=== PATIENT | male | born 1980 | race Caucasian/White ===

== ENCOUNTER 2022-08-03 11:29 | Emergency (ER) | payer OTHER, SELFPAY ==
[2022-08-03 11:40] VITALS: BP 153/90; PULSE 51; RESP 16; TEMP 36; O2SAT 98
--- NOTE | 2022-08-03 12:23 | ED.EAR ---
HPI - Ear Problem General Chief complaint: Ear Stated complaint: right ear pain Time Seen by Provider: 08/03/22 12:12 Source: patient Mode of arrival: ambulatory Limitations: no limitations History of Present Illness HPI Narrative: patient presents today complaining of right ear pain x3 days. Hearing is normal. Denies drainage. Currently rates his pain 9/10 and has been taking aspirin with mild relief. He has also been trying Sudafed without relief. He just finished course of Keflex for a paronychia infection 1 week ago. Related Data Home Medications Medication Instructions Recorded Confirmed alprazolam 1 mg tablet mg 08/03/22 atorvastatin 10 mg tablet mg 08/03/22 hydrochlorothiazide 25 mg tablet mg 08/03/22 metoprolol succinate 50 mg mg PO 08/03/22 tablet,extended release 24 hr potassium chloride 10 mEq meq PO 08/03/22 tablet,extended release venlafaxine 150 mg mg PO 08/03/22 capsule,extended release 24 hr Allergies Allergy/AdvReac Type Severity Reaction Status Date / Time No Known Allergies Allergy Verified 08/03/22 11:44 Review of Systems Review of Systems: CONSTITUTIONAL: Denies body aches, fever, chills, or sweats. EYES: Denies visual changes, redness, or discharge. ENT: Denies rhinorrhea, congestion, sore throat. + Right ear pain CARDIOVASCULAR: Denies chest pain, palpitations, or edema. RESPIRATORY: Denies cough or dyspnea. GASTROINTESTINAL: Denies abdominal pain, nausea, vomiting, or diarrhea. GENITOURINARY: Denies dysuria or hematuria. SKIN: Denies rash, itching, or wounds. MUSCULOSKELETAL: Denies back pain, joint pain, or myalgia. NEUROLOGIC: Denies headache, numbness, tingling, or weakness. PSYCH: Denies depression or anxiety. PMFSH Comments At time of signature, I have reviewed and agree with nursing past medical, surgical, social and family history unless otherwise noted. Please see nursing chart for further information. There is no relevant family history pertinent to the presenting complaint Exam Narrative: GENERAL: Well-appearing, well-nourished, and in no acute distress. HEAD: Normocephalic, atraumatic. EYES: EOMI. No redness or drainage. Conjunctivae normal. ENT: Mucous membranes pink and moist. Nares clear. No rhinorrhea. bilateral TMs normal. Right ear canal is swollen and erythematous with movement tenderness. NECK: Normal AROM. CHEST: No respiratory distress. EXTREMITIES: Normal range of motion. No edema. SKIN: Warm, dry, no rash. Capillary refill normal. Normal skin turgor. NEURO: No focal deficits. Alert and oriented x3. Gait steady. PSYCH: Normal affect. No signs of depression or anxiety. Course Course Level of Care: Express Care Visit Vital Signs Vital signs: Vital Signs Temperature 96.8 F L 08/03/22 11:40 Pulse Rate 51 L 08/03/22 11:40 Respiratory Rate 16 08/03/22 11:40 Blood Pressure 153/90 H 08/03/22 11:40 Pulse Oximetry 98 08/03/22 11:40 Oxygen Delivery Room Air 08/03/22 11:40 Temperature 96.8 F L 08/03/22 11:40 Pulse Rate 51 L 08/03/22 11:40 Respiratory Rate 16 08/03/22 11:40 Blood Pressure 153/90 H 08/03/22 11:40 Pulse Oximetry 98 08/03/22 11:40 Oxygen Delivery Room Air 08/03/22 11:40 Reviewed. Pt has been instructed to follow up with his PCP regarding his elevated blood pressure today. Medical Decision Making Differential Diagnosis Differential Diagnosis: Otitis media, otitis externa, ruptured TM, serous otitis, cerumen impaction Vital Signs Vital Signs: Vital Signs Temperature 96.8 F L 08/03/22 11:40 Pulse Rate 51 L 08/03/22 11:40 Respiratory Rate 16 08/03/22 11:40 Blood Pressure 153/90 H 08/03/22 11:40 Pulse Oximetry 98 08/03/22 11:40 Oxygen Delivery Room Air 08/03/22 11:40 Temperature 96.8 F L 08/03/22 11:40 Pulse Rate 51 L 08/03/22 11:40 Respiratory Rate 16 08/03/22 11:40 Blood Pressure 153/90 H 08/03/22 11:40 Pulse Oximetry 98 08/03/22
== END 2022-08-03 12:33 | disposition home or self-care (01) ==
PROVIDERS: Emergency Provider Nurse Practitioner; PCP Family Medicine
DX: H60.501 Unspecified acute noninfective otitis externa, right ear (principal); E78.00 Pure hypercholesterolemia, unspecified; R01.1 Cardiac murmur, unspecified
CPT/HCPCS: 99203; G0463

== ENCOUNTER 2023-01-15 09:10 | Emergency (ER) | payer OTHER, SELFPAY ==
[2023-01-15 09:34] VITALS: BP 124/79; PULSE 72; RESP 16; TEMP 36.5; O2SAT 99
--- NOTE | 2023-01-15 09:37 | ED.WOUNDLAC ---
HPI - Wound/Laceration General Chief Complaint: Skin/Abscess/Foreign Body Stated Complaint: cyst Time Seen by Provider: 01/15/23 09:37 Source: patient Mode of arrival: ambulatory Limitations: no limitations History of Present Illness HPI narrative: 42-year-old male presented for complaint of a 'cyst' to the right lower back/hip area worsening over the past 2 days. Endorses pain is 8/10. Has not taken anything for pain. Admits to drainage through the night from the site. States the site remains red, warm, and tender. Endorses a history of cysts. Smokes half pack per day. Resides in [facility]. Related Data Home Medications Medication Instructions Recorded Confirmed alprazolam 1 mg tablet mg 08/03/22 atorvastatin 10 mg tablet mg 08/03/22 hydrochlorothiazide 25 mg tablet mg 08/03/22 metoprolol succinate 50 mg mg PO 08/03/22 tablet,extended release 24 hr potassium chloride 10 mEq meq PO 08/03/22 tablet,extended release venlafaxine 150 mg mg PO 08/03/22 capsule,extended release 24 hr Allergies Allergy/AdvReac Type Severity Reaction Status Date / Time prednisone Allergy Intermediate Hallucinati Verified 01/15/23 09:39 ng Sulfa (Sulfonamide Allergy Mild Swelling Verified 01/15/23 09:39 Antibiotics) Review of Systems Review of Systems: CONSTITUTIONAL: Denies body aches, fever, chills, or sweats. EYES: Denies visual changes, redness, or discharge. ENT: Denies rhinorrhea, congestion CARDIOVASCULAR: Denies chest pain, palpitations, or edema. RESPIRATORY: Denies cough or dyspnea. GASTROINTESTINAL: Denies abdominal pain, nausea, vomiting, or diarrhea. SKIN: per HPI MUSCULOSKELETAL: Denies back pain, joint pain, or myalgia. NEUROLOGIC: Denies headache, numbness, tingling, or weakness. [facility] Past Medical History Medical History (Updated 01/15/23 @ 10:35 by Paola Cabrera APRN) Hypertension TBI (traumatic brain injury) Comments At time of signature, I have reviewed and agree with nursing past medical, surgical, social and family history unless otherwise noted. Please see nursing chart for further information. There is no relevant family history pertinent to the presenting complaint Exam Narrative: GENERAL: Well-appearing HEAD: Normocephalic, atraumatic. EYES: conjunctivae clear, and EOMI. ENT: Mucous membranes moist. Oropharynx without edema, erythema or lesions. Poor dentition, missing teeth. NECK: Supple. No lymphadenopathy CHEST: Clear to auscultation. HEART: Regular rate and rhythm. SKIN: Warm, dry. Right lower back/hip abscess firm/indurated area of [id number] with surrounding warmth and erythema 11cm diameter; fluctuant and draining center with yellow thick slough tissue. NEURO: Alert and oriented x3. Course Course Emergency Course: Patient is aware of diagnosis, understands and agrees to treatment plan. Anticipatory guidance given. Patient agrees to follow-up as directed and is aware of reasons to seek care at the emergency department. Portions of this record may have been created with voice recognition software Level of Care: Express Care Visit Vital Signs Vital signs: Reviewed Procedures Abscess I/D right lower back: Date of Incision: 01/15/23 Side (if applicable): right Local Anesthetic: lidocaine 1% and with epi Amount of anesthesia used (mL): 3 Technique: incised with #11 blade Irrigation: Yes (100mL) Packing used?: none I&D Results: Pus and Blood Abcess I&D Additional Comments: Verbal consent. Incision made to center of area of fluctuance after local anesthesia achieved. Moderate amount of thick purulent and sanguinous discharge expelled with manual pressure. Small amount of yellow slough at center removed. Wound irrigated and probed for loculations. Pt tolerated the procedure well. Dressing applied per RN. MDM - Wound/Laceration MDM Narrative Medical decision making narrative: Absces
== END 2023-01-15 10:43 | disposition home or self-care (01) ==
PROVIDERS: Emergency Provider Nurse Practitioner Family; PCP Family Medicine
DX: L02.31 Cutaneous abscess of buttock (principal); I10 Essential (primary) hypertension
CPT/HCPCS: 10060; 87070; 87147; 87181; 87186; 87205; 99213; G0463

== ENCOUNTER 2023-04-18 09:26 | Emergency (ER) | payer OTHER, SELFPAY ==
[2023-04-18 09:34] VITALS: BP 131/75; PULSE 55; RESP 16; TEMP 36.9; O2SAT 99
--- NOTE | 2023-04-18 09:36 | ED.EAR ---
HPI - Ear Problem General Chief complaint: Dental/Oral Stated complaint: Right Ear Irritation Time Seen by Provider: 04/18/23 09:35 Source: patient Mode of arrival: ambulatory Limitations: no limitations History of Present Illness HPI Narrative: Silas is a 42-year-old male patient presenting to the clinic today with complaints of right ear pressure, pain, ringing/white noise in right ear. He reports that this has been going on for a few days. No fever or chills. Does report some nasal congestion and allergy symptoms. Related Data Home Medications Medication Instructions Recorded Confirmed alprazolam 1 mg tablet 1 mg DIRECTED 08/03/22 04/18/23 atorvastatin 10 mg tablet 10 mg DIRECTED 08/03/22 04/18/23 hydrochlorothiazide 25 mg tablet 25 mg DIRECTED 08/03/22 04/18/23 metoprolol succinate 50 mg 50 mg PO DIRECTED 08/03/22 04/18/23 tablet,extended release 24 hr potassium chloride 10 mEq 10 meq PO DIRECTED 08/03/22 04/18/23 tablet,extended release venlafaxine 150 mg 150 mg PO DIRECTED 08/03/22 04/18/23 capsule,extended release 24 hr Allergies Allergy/AdvReac Type Severity Reaction Status Date / Time prednisone Allergy Intermediate Hallucinati Verified 04/18/23 09:38 ng Sulfa (Sulfonamide Allergy Mild Swelling Verified 04/18/23 09:38 Antibiotics) Review of Systems Review of Systems: Pertinent positives per HPI. Patient denies any fever, chills, rash, headache, visual changes, dizziness, cough, shortness of breath, chest pain, palpitations, nausea, vomiting, diarrhea, constipation, abdominal pain, or any urinary issues. PMFSH Past Medical History Medical History (Updated 04/18/23 @ 09:38 by Harmeet Lara, JANETTE) Hypertension TBI (traumatic brain injury) Comments At the time of my signature, I reviewed and agree with the nursing past medical, surgical, social, and family history. There is no relevant family history pertinent to the patient complaint. Exam Narrative: General: Well-developed, well nourished, in no apparent distress Head: Normocephalic, atraumatic Eyes: Pupils equally round and reactive to light bilaterally, EOM intact, sclera and conjunctive clear, no discharge, lids normal Ears: Left TMs intact and clear, right TM intact, bulging, opaque, with fluid noted behind the TM, ear canals clear, no drainage, grossly hearing normal. Nose: Nares patent, clear discharge, no inflammation, no sinus tenderness. Mouth: Oral pharynx without lesions or masses, good dentition, MMM. Postnasal drip Neck: Supple, trachea midline, no enlargement of anterior or posterior cervical nodes, no thyroid masses or goiter palpable. Cardio: Regular rate and rhythm, s1 and s2 normal, no murmur appreciated. Resp: Clear to auscultation bilaterally, no rhonchi, rales, wheezing or rubs Course Course Emergency Course: Portions of this record may have been created with voice recognition software. Level of Care: Express Care Visit Vital Signs Vital signs: Vital Signs Temperature 36.9 C 04/18/23 09:34 Pulse Rate 55 L 04/18/23 09:34 Respiratory Rate 16 04/18/23 09:34 Blood Pressure 131/75 04/18/23 09:34 Pulse Oximetry 99 04/18/23 09:34 Oxygen Delivery Room Air 04/18/23 09:34 Temperature 36.9 C 04/18/23 09:34 Pulse Rate 55 L 04/18/23 09:34 Respiratory Rate 16 04/18/23 09:34 Blood Pressure 131/75 04/18/23 09:34 Pulse Oximetry 99 04/18/23 09:34 Oxygen Delivery Room Air 04/18/23 09:34 Vital signs reviewed Medical Decision Making MDM Narrative Medical decision making narrative: At the time of visit patient is resting comfortably on exam table. I suspect the patient has serous otitis. Prescription for prednisone was sent to the pharmacy. Patient has history of lids hallucinating with prednisone but he has had it before and is able to tolerate it. States he saw rainbows in the past and this affect him and not being able to d
== END 2023-04-18 09:43 | disposition home or self-care (01) ==
PROVIDERS: Emergency Provider Nurse Practitioner Family; PCP Family Medicine
DX: H65.111 Acute and subacute allergic otitis media (mucoid) (sanguinous) (serous), right ear (principal); I10 Essential (primary) hypertension
CPT/HCPCS: 99213; G0463

== ENCOUNTER 2024-01-09 17:39 | Emergency (ER) | payer OTHER, SELFPAY ==
[2024-01-09 17:42] VITALS: BP 122/77; PULSE 52; RESP 16; TEMP 36; O2SAT 95
[2024-01-09 18:09] LABS: Basophils Absolute Auto 0.1 K/mm3 (0.0-0.1); Basophils Percent Auto 0.7 % (0.2-1.2); Eosinophils Absolute Auto 0.1 K/mm3 (0-0.3); Eosinophils Percent Auto 0.6 % (0-4.4); Hematocrit 48.2 % (42.0-52.0); Hemoglobin 16.2 g/dL (14.0-18.0); Immature Granulocyte Absolute 0.03 K/mm3 (0.00-0.031); Immature Granulocyte Percent A 0.3 % (0-0.5); Lymphocytes Absolute Auto 2.23 K/mm3 (0.9-3.2); Lymphocytes Percent Auto 20.9 % (18.3-44.2); Mean Corpuscular HGB Conc 33.6 g/dl (32-36); Mean Corpuscular Hemoglobin 28.9 pg (26-34); Mean Corpuscular Volume 85.9 fl (80-100); Mean Platelet Volume 9.3 fl (7.4-10.4); Monocytes Absolute Auto 0.9 K/mm3 (0.1-0.6); Monocytes Percent Auto 8.4 % (2.6-8.5); Neutrophils Absolute Auto 7.4 K/mm3 (1.3-6.7); Neutrophils Percent Auto 69.1 % (45.5-73.1); Platelet Count Result 285 k/mm3 (150-375); Red Blood Count 5.61 M/mm3 (4.6-6.20); Red Cell Distribution Width 13.8 % (11.5-14.5); White Blood Count 10.7 K/mm3 (4.5-10.0)
[2024-01-09 18:17] LABS: Ethanol < 10 mg/dL (<10)
[2024-01-09 18:24] LABS: Alanine Aminotransferase 43 U/L (6-50); Albumin Level 4.8 g/dL (3.5-5.1); Alkaline Phosphatase 111 U/L (38-126); Anion Gap 12 mmol/L (4-12); Aspartate Amino Transferase 35 U/L (17-59); Blood Urea Nitrogen 26 mg/dL (9-20); Calcium 9.6 mg/dL (8.4-10.2); Carbon Dioxide 22 mmol/L (22-30); Chloride 104 mmol/L (98-107); Estimated CRCL calculation 107 ml/min; Estimated Glomerular Filt Rate > 60; Glucose 103 mg/dL (65-110); Potassium 3.6 mmol/L (3.4-5.0); Sodium 138 mmol/L (137-145)
--- NOTE | 2024-01-09 20:07 | PC.NURSE ---
Upon getting patient into a room he states he has no idea why he is here and does not want to be seen anymore. This RN clarified multiple times if pt wants to be seen by a provider for anxiety or anything else and pt denies.
[2024-01-09 20:09] LABS: Thyroid Stimulating Hormone Reflex 0.983 uIU/mL (0.465-4.68)
== END 2024-01-09 20:07 | disposition left against medical advice (07) ==
PROVIDERS: Emergency Provider Emergency Medicine; PCP Family Medicine
DX: F41.9 Anxiety disorder, unspecified (principal)
CPT/HCPCS: 36415; 80053; 80307; 84443; 85025; 99199

== ENCOUNTER 2024-02-21 13:52 | Emergency (ER) | payer OTHER, SELFPAY ==
--- NOTE | 2024-02-21 13:53 | ED.CHESTPAIN ---
HPI - Chest Pain General Chief Complaint: Unspecified Stated Complaint: Chest Wall Pain Time Seen by Provider: 02/21/24 13:52 Source: patient Mode of arrival: ambulatory Limitations: no limitations History of Present Illness HPI narrative: Silas is a 43-year-old male patient presenting to the clinic today with complaints of midsternal chest pain, anxiety, sweating, and shortness of breath. He reports he was taking off his Xanax on Saturday. States he had a positive urine drug test-was positive for methamphetamines and marijuana. He admits to taking the marijuana but denies any methamphetamine use. He lives in the [facility] and thinks that there may be some methamphetamines coming into the air through the [place]. History of TBI , hypertension,and anxiety in the past. Was seeing Dr. Jensen but is now seeing someone else in the office. States that that provider prescribed him 6,[phone] Xanax and the pharmacy contacted the patient and asked him what was going on. The pharmacy did not fill that prescription so the patient has been without this medication. Was given clonidine by Dr. Campa office-states he has taken 1 dose of the clonidine on Saturday and this gave him a headache so he has not taken it since. Related Data Home Medications Medication Instructions Recorded Confirmed atorvastatin 10 mg tablet 10 mg DIRECTED 08/03/22 02/21/24 hydrochlorothiazide 25 mg tablet 12.5 mg PO DIRECTED 08/03/22 02/21/24 clonidine HCl 0.2 mg tablet 0.2 mg PO DIRECTED 02/21/24 02/21/24 metoprolol succinate 25 mg 25 mg PO DAILY 02/21/24 02/21/24 tablet,extended release 24 hr venlafaxine 150 mg 150 mg PO DAILY 02/21/24 02/21/24 capsule,extended release 24 hr Allergies Allergy/AdvReac Type Severity Reaction Status Date / Time prednisone Allergy Intermediate Hallucinati Verified 02/21/24 13:58 ng Sulfa (Sulfonamide Allergy Mild Swelling Verified 02/21/24 13:58 Antibiotics) Review of Systems Review of Systems: Pertinent positives per HPI. Patient denies any fever, chills, rash, headache, visual changes, dizziness, cough, runny nose, sore throat, nausea, vomiting, diarrhea, constipation, abdominal pain, or any urinary issues. PMFSH Past Medical History Medical History Hypertension TBI (traumatic brain injury) Comments At the time of my signature, I reviewed and agree with the nursing past medical, surgical, social, and family history. There is no relevant family history pertinent to the patient complaint. Exam Narrative: General: Well-developed, well nourished, appears anxious, slightly diaphoretic Head: Normocephalic, atraumatic Eyes: Pupils equally round and reactive to light bilaterally, EOM intact, sclera and conjunctive clear, no discharge, lids normal Ears: TMs intact and clear, ear canals clear, no drainage, grossly hearing normal. Nose: Nares patent, no discharge, no inflammation, no sinus tenderness. Mouth: Oropharynx without lesions or masses, good dentition, MMM. Neck: Supple, trachea midline, no enlargement of anterior or posterior cervical nodes, no thyroid masses or goiter palpable. Cardio: Regular rate and rhythm, s1 and s2 normal, no murmur appreciated. Resp: Clear to auscultation bilaterally anteriorly and posteriorly, no rhonchi, rales, wheezing or rubs Extremities: No deformity, no edema, no cyanosis, capillary refill less than 2 seconds, peripheral pulses palpable and strong. Integumentary: [place], warm, and dry, intact without lesion, no rashes. Course Course Emergency Course: Portions of this record may have been created with voice recognition software. Level of Care: Express Care Visit Vital Signs Vital signs: Vital signs reviewed MDM - Chest Pain MDM Narrative Medical decision making narrative: At the time of visit patient is resting comfortably on the exam table. Patient appears to be nontoxic.
[2024-02-21 14:01] VITALS: BP 151/103; PULSE 60; RESP 22; TEMP 36.1; O2SAT 96
--- NOTE | 2024-02-21 14:28 | ECG_ITS ---
[facility] [address] Test Date: 2024-02-21 Pat Name: Silas Umaña Department: Room: Gender: M [employer]: : 1980 Requested By: Harmeet Lara Order Number: [id number] Reading MD: Silas Balderrama M.D. Measurements Intervals [place] Rate: P: MT: QRS: QRSD: T: QT: QTc: Interpretive Statements POOR QUALITY ECG COPY NEARLY UNINTERPRETABLE SINUS BRADYCARDIA BORDERLINE ECG Electronically Signed On 03-06-2024 08:48:39 CDT by Silas Balderrama M.D.
== END 2024-02-21 14:30 | disposition home or self-care (01) ==
PROVIDERS: Emergency Provider Nurse Practitioner Family; PCP Family Medicine
DX: F41.9 Anxiety disorder, unspecified (principal); R07.89 Other chest pain; F13.930 Sedative, hypnotic or anxiolytic use, unspecified with withdrawal, uncomplicated; I10 Essential (primary) hypertension; Z87.820 Personal history of traumatic brain injury
CPT/HCPCS: 93005; 99213; G0463

== ENCOUNTER 2024-03-11 10:10 | Emergency (ER) | payer OTHER, SELFPAY ==
[2024-03-11 10:12] VITALS: BP 154/83; PULSE 56; RESP 18; TEMP 36.2; O2SAT 100
--- NOTE | 2024-03-11 10:14 | ED.GENADULT ---
HPI - General Adult General Chief complaint: Unspecified Stated complaint: body aches x 3-4 weeks Time Seen by Provider: 03/11/24 10:10 Source: patient Mode of arrival: ambulatory Limitations: no limitations History of Present Illness HPI narrative: This is a 43-year-old male who presents to the ED for chief complaint of body aches for the past 3-4 weeks. Patient states that he was taken off of his Xanax cold turkey by a new primary care doctor after his old PCP retired. States he has not had any Xanax in several weeks. Reports that since then he has intermittent body aches. He has had symptoms of anxiety, chest pain and shortness of breath in the past but none today. Denies any other substance use. Denies recent illness, fevers, chills, cough, abdominal pain, nausea, vomiting. States he is currently trying to get in with a new PCP to address his anxiety and prescriptions. Related Data Home Medications Medication Instructions Recorded Confirmed atorvastatin 10 mg tablet 10 mg DIRECTED 08/03/22 02/21/24 hydrochlorothiazide 25 mg tablet 12.5 mg PO DIRECTED 08/03/22 02/21/24 clonidine HCl 0.2 mg tablet 0.2 mg PO DIRECTED 02/21/24 02/21/24 metoprolol succinate 25 mg 25 mg PO DAILY 02/21/24 02/21/24 tablet,extended release 24 hr venlafaxine 150 mg 150 mg PO DAILY 02/21/24 02/21/24 capsule,extended release 24 hr Allergies Allergy/AdvReac Type Severity Reaction Status Date / Time prednisone Allergy Intermediate Hallucinati Verified 02/21/24 13:58 ng Sulfa (Sulfonamide Allergy Mild Swelling Verified 02/21/24 13:58 Antibiotics) Review of Systems Review of Systems: All systems as dictated in [facility] Past Medical History Medical History Hypertension TBI (traumatic brain injury) Exam Narrative: GENERAL: Well-appearing, well-nourished, and in no acute distress. No diaphoresis HEAD: Normocephalic, atraumatic. EYES: PERRLA and EOMI. ENT: Nares clear, no rhinorrhea or epistaxis. Mucous membranes moist. Oropharynx without tonsillar hypertrophy exudate or other lesions. NECK: Supple. No adenopathy or masses. CHEST: No respiratory distress. Clear to auscultation. No wheezes rales or rhonchi HEART: Regular rate and rhythm. No murmur heard. Normal peripheral pulses. ABDOMEN: Soft, nontender, nondistended, normal active bowel sounds. MSK: Normal range of motion. No edema. SKIN: Warm, dry, no rash. NEURO: Alert and oriented x4. No focal deficits. PSYCH: Normal mood and affect. no SI. No HI. No hallucinations Medical Decision Making MDM Narrative Medical decision making narrative: This is a 43 year old male who presents to the ED for chief complaint of body aches for the past 3-4 weeks. vitals show slight elevated blood pressure otherwise normal. Exam is benign. Suspect benzodiazepine withdrawal as patient was taken off of his Xanax a month ago cold turkey after switching PCP. Prescription monitoring program supports this as patient's last prescription was in December. He probably ran out in January. No signs of severe withdrawal such as delirium or seizures. Discussed tapering down of Xanax with the patient. He is understanding of this process. He would like to get off Xanax if possible. He would like to talk to his new PCP about options for controlling anxiety. We agreed on a week's worth his half of his typical dose. Today he was prescribed 0.5 mg alprazolam t.i.d. as needed for anxiety and withdrawal symptoms. Ideally he can talk to his doctor about continuing this taper off. Pt will be discharged in stable condition. Return precautions given and supportive measures discussed. Pt is understanding and agreeable with plan for discharge and follow-up with PCP. Discharge Plan Discharge Clinical Impression: Benzodiazepine withdrawal without complication Patient Disposition: Home, Self-Care
== END 2024-03-11 11:01 | disposition home or self-care (01) ==
LOC: ANHED 10:44
PROVIDERS: Emergency Provider Physician Assistant
DX: F13.930 Sedative, hypnotic or anxiolytic use, unspecified with withdrawal, uncomplicated (principal); F41.9 Anxiety disorder, unspecified; I10 Essential (primary) hypertension; Z87.820 Personal history of traumatic brain injury; Z79.899 Other long term (current) drug therapy
CPT/HCPCS: 99283

== ENCOUNTER 2024-08-24 09:31 | Emergency (ER) | payer OTHER, SELFPAY ==
[2024-08-24 09:41] VITALS: BP 125/92; PULSE 69; RESP 16; TEMP 35.2; O2SAT 100
--- NOTE | 2024-08-24 10:09 | ED_ITS ---
HPI - Wound/Laceration General Chief Complaint: Wound/Laceration Stated Complaint: pilonidal cyst discharge Time Seen by Provider: 08/24/24 10:09 Source: patient, RN notes reviewed and old records reviewed Mode of arrival: ambulatory Limitations: no limitations History of Present Illness HPI narrative: 43-year-old male presents to the [facility] with increased bloody drainage, bloody clots coming from a surgical incision. Patient reports a pilonidal cyst removal 1 week ago. Currently on Cipro and Flagyl. Patient reports that he woke up approximately 4:00 a.m. and was covered in blood. Patient reports surgery was done at [facility]. Related Data Home Medications Medication Instructions Recorded Confirmed atorvastatin 10 mg tablet 10 mg DIRECTED 08/03/22 02/21/24 hydrochlorothiazide 25 mg tablet 12.5 mg PO DIRECTED 08/03/22 02/21/24 clonidine HCl 0.2 mg tablet 0.2 mg PO DIRECTED 02/21/24 02/21/24 metoprolol succinate 25 mg 25 mg PO DAILY 02/21/24 02/21/24 tablet,extended release 24 hr venlafaxine 150 mg 150 mg PO DAILY 02/21/24 02/21/24 capsule,extended release 24 hr aripiprazole 5 mg tablet mg 08/24/24 ciprofloxacin HCl 500 mg tablet mg 08/24/24 gabapentin 100 mg capsule mg 08/24/24 guanfacine 2 mg tablet,extended mg PO 08/24/24 release 24 hr hydroxyzine HCl 50 mg tablet mg 08/24/24 metronidazole 500 mg tablet mg 08/24/24 prazosin 1 mg capsule mg 08/24/24 propranolol 60 mg capsule,24 mg PO 08/24/24 hr,extended release Allergies Allergy/AdvReac Type Severity Reaction Status Date / Time prednisone Allergy Intermediate Hallucinati Verified 08/24/24 09:49 ng Sulfa (Sulfonamide Allergy Mild Swelling Verified 08/24/24 09:49 Antibiotics) Review of Systems Review of Systems: All systems reviewed & are unremarkable except as noted in HPI and below Constitutional: Constitutional: Reports no additional constitutional complaints Cardiovascular: Cardiovascular: Reports no additional cardiovascular complaints, Denies chest pain and Denies dyspnea Respiratory: Respiratory: Reports no additional respiratory complaints, Denies chest congestion, Denies cough and Denies dyspnea Gastrointestinal: Gastrointestinal: Reports no additional gastrointestinal complaints, Denies abdominal pain, Denies nausea and Denies vomiting Musculoskeletal: Musculoskeletal: Reports no additional musculoskeletal complaints Integumentary/Breasts: Skin/Breast: Reports as per HPI and Reports wounds (Sacrum, butt cheek) [facility] Past Medical History Medical History (Updated 08/24/24 @ 18:03 by Katharine March APRN) Hypertension TBI (traumatic brain injury) Surgical History Surgical History (Updated 08/24/24 @ 11:54 by Katharine March APRN) History of surgical removal of pilonidal cyst 07/2024 Comments At the time of my signature, I reviewed and agree with the nursing past medical, surgical, social, and family history. There is no relevant family history pertinent to the patient complaint. Exam Const: General: cooperative, healthy appearing, comfortable, no acute distress, well developed, alert and well nourished Nutritional Appearance: well nourished Orientation/consciousness: patient oriented x3 Limitations: no limitations HENMT: Head: normal to inspection Ears: hearing grossly normal bilaterally and external ears normal Face/Nose/Sinus: Normal external nose present, normal facial exam and face symmetric Face and sinus: normal facial exam and face symmetric Eyes: General: appearance normal, both eyes and all related structures Alignment and Position: alignment normal Periorbital: periorbital findings normal Neck: Neck: normal visual inspection, full ROM, no lymphadenopathy and no meningeal signs Chest: Chest palpation & inspection: normal inspection of the chest Resp: Effort & Inspection: normal respiratory effort and able to speak in complete sentences Cardio: Rate: regular rate Skin: General skin exam: normal color and no rashes or lesions noted Lesions: no lesions Rashes: no rashes Other: Surgical wound 17 cm from coccyx almost to anus. Center is open, large blood clots seen. Neuro: General: patient oriented x3, gait normal, tone normal, moves all extremities and no meningeal signs Cognition (Neuro): normal cognition Speech: normal speech Gait exam (Neuro): Normal gait present Extrem: General: normal to inspection, full ROM, capillary refill normal and normal gait Psych: Appearance: grossly normal and well kempt Mental Status: mental status grossly normal Speech and movement: Normal speech and movement present and Clear speech present Affect: normal affect Attitude: cooperative Course Course Emergency Course: Originally called [facility] per patient request, spoke with nurse, Dr. Mami johnson [facility] arrived stating that the only have 1 truck in the area. They are unable to go to own at this time. Patient would prefer to go to [facility]. Spoke with Gilma PATIÑO, Dr. Barton Level of Care: Express Care Visit Vital Signs Vital signs: Vital Signs Temperature 95.3 F L 08/24/24 09:41 Pulse Rate 69 08/24/24 09:41 Respiratory Rate 16 08/24/24 09:41 Blood Pressure 125/92 H 08/24/24 09:41 Pulse Oximetry 100 08/24/24 09:41 Oxygen Delivery Room Air 08/24/24 09:41 Temperature 95.3 F L 08/24/24 09:41 Pulse Rate 69 08/24/24 09:41 Respiratory Rate 16 08/24/24 09:41 Blood Pressure 125/92 H 08/24/24 09:41 Pulse Oximetry 100 08/24/24 09:41 Oxygen Delivery Room Air 08/24/24 09:41 Reviewed Transfer Transfered to: [facility] Transportation: BLS Transfer rationale: Patient with open wound, sending for higher level of care due to unable to evaluate large surgical wound MDM - Wound/Laceration MDM Narrative Medical decision making narrative: Patient with bleeding surgical wound. Surgery 1 week ago. Patient is sitting in exam room. Nontoxic vitals are stable. Originally was going to sent to [facility], EMS unable to do that transfer. Patient has no ride and requesting EMS transfer. Patient now going to [facility] Transfer instructions reviewed with patient go directly to the ER. Patient is choosing to go by EMS due to not having a ride. Unable to do evaluation of the open wound, surgical wound. All questions have been answered, and the patient deny any further questions. Some parts of this dictation were generated by voice recognition software and may contain typographical and/or grammatical inaccuracies. Differential Diagnosis Differential diagnosis: Likely laceration, abscess, abrasion and avulsion of skin Critical Care Time Critical Care Time Critical Care Time: No Discharge Plan Discharge Clinical Impression: Drainage from surgical wound Patient Disposition: Acute Care Hospital Condition: Stable Prescriptions: No Action atorvastatin 10 mg tablet 10 mg DIRECTED hydrochlorothiazide 25 mg tablet 12.5 mg PO DIRECTED metoprolol succinate 25 mg tablet extended release 24 hr 25 mg PO DAILY clonidine HCl 0.2 mg tablet 0.2 mg PO DIRECTED venlafaxine 150 mg capsule,extended release 24hr 150 mg PO DAILY buspirone 7.5 mg tablet 7.5 mg PO BID 30 Days Qty: 60 0RF prazosin 1 mg capsule propranolol 60 mg capsule,extended release 24 hr PO metronidazole 500 mg tablet hydroxyzine HCl 50 mg tablet ciprofloxacin HCl 500 mg tablet gabapentin 100 mg capsule aripiprazole 5 mg tablet guanfacine 2 mg tablet extended release 24 hr PO alprazolam 0.5 mg tablet 0.5 mg PO TID PRN (Reason: anxiety) Qty: 20 0RF Follow-up/Referrals: PHYSICIAN NOT ON STAFF,NONSTAFF [Primary Care Provider] -
== END 2024-08-24 10:35 | disposition short-term general hospital (02) ==
PROVIDERS: Emergency Provider Nurse Practitioner
DX: Z48.01 Encounter for change or removal of surgical wound dressing (principal); I10 Essential (primary) hypertension
CPT/HCPCS: 99215; G0463

== ENCOUNTER 2024-10-20 23:36 | Emergency (ER) | payer OTHER, SELFPAY ==
--- NOTE | ~2024-10-20 | XR_ITS ---
CHEST RADIOGRAPH CLINICAL HISTORY: CP/light headed . COMPARISON: None available TECHNIQUE: Single portable view of the chest. FINDINGS The cardiomediastinal silhouette is unremarkable. The lungs are clear. Visualized osseous structures and soft tissues are unremarkable. IMPRESSION: No focal infiltrate or effusion. Reviewed, dictated and finalized at location A. ER ENGINEER
[2024-10-20 23:35] VITALS: BP 162/98; PULSE 47; RESP 18; TEMP 36.6; O2SAT 98
[2024-10-21 00:03] LABS: Prothrombin Time 13.8 Seconds (11.1-14.7)
[2024-10-21 00:04] LABS: Partial Thromboplastin Time 30.5 Seconds (22.3-36.8)
[2024-10-21 00:05] LABS: Basophils Absolute Auto 0.1 K/mm3 (0.0-0.1); Basophils Percent Auto 0.6 % (0.2-1.2); Eosinophils Absolute Auto 0.1 K/mm3 (0-0.3); Eosinophils Percent Auto 0.9 % (0-4.4); Hematocrit 48.1 % (42.0-52.0); Hemoglobin 15.7 g/dL (14.0-18.0); Immature Granulocyte Absolute 0.09 K/mm3 (0.00-0.031); Immature Granulocyte Percent A 1.2 % (0-0.5); Lymphocytes Absolute Auto 2.63 K/mm3 (0.9-3.2); Lymphocytes Percent Auto 34.1 % (18.3-44.2); Mean Corpuscular HGB Conc 32.6 g/dl (32-36); Mean Corpuscular Hemoglobin 27.6 pg (26-34); Mean Corpuscular Volume 84.7 fl (80-100); Mean Platelet Volume 9.5 fl (7.4-10.4); Monocytes Absolute Auto 0.6 K/mm3 (0.1-0.6); Monocytes Percent Auto 7.1 % (2.6-8.5); Neutrophils Absolute Auto 4.3 K/mm3 (1.3-6.7); Neutrophils Percent Auto 56.1 % (45.5-73.1); Platelet Count Result 300 k/mm3 (150-375); Red Blood Count 5.68 M/mm3 (4.6-6.20); Red Cell Distribution Width 12.8 % (11.5-14.5); White Blood Count 7.7 K/mm3 (4.5-10.0)
[2024-10-21 00:10] LABS: Alanine Aminotransferase 40 U/L (6-50); Albumin Level 4.6 g/dL (3.5-5.1); Alkaline Phosphatase 91 U/L (38-126); Anion Gap 11 mmol/L (4-12); Aspartate Amino Transferase 34 U/L (17-59); Bilirubin,Total 0.8 mg/dL (0.2-1.3); Blood Urea Nitrogen 16 mg/dL (9-20); Carbon Dioxide 28 mmol/L (22-30); Chloride 103 mmol/L (98-107); Estimated CRCL calculation 128 ml/min; Estimated Glomerular Filt Rate > 60; Glucose 114 mg/dL (65-110); Lipase 59 U/L (23-300); Magnesium 1.9 mg/dL (1.6-2.3); Sodium 142 mmol/L (137-145)
[2024-10-21 00:22] LABS: Troponin I < 0.012 ng/mL (0.000-0.034)
--- NOTE | 2024-10-21 00:37 | ED.ARRPALP ---
HPI - Arrhythmia/Palpitations General Chief Complaint: Arrhythmia/Palpitations Stated Complaint: ASYMPTOMATIC BRADYCARDIA Time Seen by Provider: 10/20/24 23:40 History of Present Illness HPI narrative: Patient is a 43-year-old male who presents to the emergency department this evening complaining of a low heart rate. Patient states that he used to be on metoprolol for anxiety and high blood pressure and 3 months ago he was switched to propanolol and ever since they make that switch patient has noticed that his heart rate has always been low ranging in the 40 so 50s. Patient states that he has not had any issues with his low heart rate but recently he has been feeling under the weather and was wondering if that has something to do with that. Patient told his mom that his heart rate has been running and she as a retired nurse prompted him to come to the emergency department for further evaluation. Patient states that his symptoms consisted of some dizziness and some lightheadedness but currently is denying both. He also is denying any active chest pain, shortness of breath, nausea vomiting and abdominal pain. No additional symptoms or concerns at this time. Related Data Home Medications ?Medication ?Instructions ?Recorded ?Confirmed ?Last Taken ?Type atorvastatin 10 mg tablet 10 mg DIRECTED 08/03/22 02/21/24 Unknown History hydrochlorothiazide 25 mg tablet 12.5 mg PO DIRECTED 08/03/22 02/21/24 Unknown History clonidine HCl 0.2 mg tablet 0.2 mg PO DIRECTED 02/21/24 02/21/24 Unknown History metoprolol succinate 25 mg 25 mg PO DAILY 02/21/24 02/21/24 Unknown History tablet,extended release 24 hr venlafaxine 150 mg 150 mg PO DAILY 02/21/24 02/21/24 Unknown History capsule,extended release 24 hr aripiprazole 5 mg tablet mg 08/24/24 Unknown History ciprofloxacin HCl 500 mg tablet mg 08/24/24 Unknown History gabapentin 100 mg capsule mg 08/24/24 Unknown History guanfacine 2 mg tablet,extended mg PO 08/24/24 Unknown History release 24 hr hydroxyzine HCl 50 mg tablet mg 08/24/24 Unknown History metronidazole 500 mg tablet mg 08/24/24 Unknown History prazosin 1 mg capsule mg 08/24/24 Unknown History propranolol 60 mg capsule,24 mg PO 08/24/24 Unknown History hr,extended release Allergies Allergy/AdvReac Type Severity Reaction Status Date / Time prednisone Allergy Intermediate Hallucinati Verified 08/24/24 09:49 ng Sulfa (Sulfonamide Allergy Mild Swelling Verified 08/24/24 09:49 Antibiotics) Review of Systems Review of Systems: All systems are reviewed and are negative unless stated otherwise in the HPI. [facility] Past Medical History Medical History TBI (traumatic brain injury) Hypertension Surgical History Surgical History History of surgical removal of pilonidal cyst 07/2024 Exam Narrative: General: Alert, awake, afebrile, in no acute distress. HEENT: PERRL, no rhinorrhea, no post nasal drip, oropharynx clear. Neck: Trachea midline, no JVD, no lymphadenopathy. Cardiovascular: Bradycardic with regular rhythm, no murmurs, rubs or gallops, no peripheral edema. Respiratory: Clear to auscultation bilaterally, no tachypnea, no wheezing, no rhonchi, no rubs, no respiratory distress. Abdomen: Soft, nontender, nondistended, no rebound, no guarding, no peritoneal signs. Musculoskeletal: No joint swelling or deformity, normal muscle tone. Skin: No rashes or petechia, no signs of infection. Psychiatric: Alert and oriented, normal behavior and judgment for situation. Neurological: Alert and oriented to person, place, and time. Follows all commands. No focal deficits, speech is clear and fluent. Course Vital Signs Vital signs: Vital Signs Temperature 97.8 F 10/20/24 23:35 Pulse Rate 47 L 10/20/24 23:35 Respiratory Rate 18 10/20/24 23:35 Blood Pressure 162/98 H 10/20/24 23:35 Pulse Oximetry 98 10/20/24 23:35 Oxygen Delivery Room Air 10/20/24 23:35 Temperature 97.8 F 10/20/24 23:35 Pulse Rate 47 L 10/20/24 23:35 Respiratory Rate 18 10/20/24 23:35 Blood Pressure 162/98 H 10/20/24 23:35 Pulse Oximetry 98 10/20/24 23:35 Oxygen Delivery Room Air 10/20/24 23:35 MDM - Arrhythmia/Palpitations MDM Narrative Medical decision making narrative: The patient was evaluated by myself in the emergency department. History is obtained from patient who is an independent historian and physical exam was performed. External medical records were reviewed at this time. IV was established and pertinent tests were ordered. EKG was obtained which revealed sinus bradycardia at a rate of 43 beats per minute. No ST changes, T wave inversions or evidence of acute ischemia. EKG was independently interpreted by me and is currently pending official cardiology read. Laboratory results obtained revealing no acute process. Troponin negative. Imaging studies obtained included CXR which was independently interpreted by me revealing no acute cardiopulmonary process, which is pending final radiology interpretation. Differential diagnosis considerations include bradycardia secondary to medication use, ischemia, electrolytes. Comorbidities impacting this visit include daily per final use. I have evaluated and discussed social determinants of health with the patient that could potentially impact subsequent diagnosis and treatment plans. On repeat assessment of the patient, reevaluation revealed that the patient is doing well and is in no acute distress. Patient symptoms have remained stable since he arrived to our emergency department. Repeat vital signs were all reviewed and noted to be stable. Differential diagnosis and treatment plan were discussed with the patient at bedside. Patient agrees with discussion and after shared medical decision making agrees with discharge. All questions were answered to the patient's satisfaction. Patient does not want to completely quit taking the propranolol and would like to be prescribed a lower dose. Patient was informed that he is on the lowest dose of extended release, however, I will be prescribing him for final immediate release 20 mg to take BID which drops the daily dose from 60-40 until he follows up with his primary care physician which he is scheduled to see on Saturday in 2 days. Patient states that he is taking another blood pressure medication hydrochlorothiazide as well. Patient will follow up with his primary care physician in 2 days. Patient was provided with strict return precautions and instructed to return to the emergency department if any new or worsening symptoms develop. The patient was discharged in stable condition. Lab Data 10/20/24 23:42 10/20/24 23:42 Labs: Lab Results 10/20/24 Range/Units 23:42 WBC 7.7 (4.5-10.0) K/mm3 RBC 5.68 (4.6-6.20) M/mm3 Hgb 15.7 (14.0-18.0) g/dL Hct 48.1 (42.0-52.0) % MCV 84.7 (80-100) fl MCH 27.6 (26-34) pg MCHC 32.6 (32-36) g/dl RDW 12.8 (11.5-14.5) % Plt Count 300 (150-375) k/mm3 MPV 9.5 (7.4-10.4) fl Immature Gran % (Auto) 1.2 H (0-0.5) % Neut % (Auto) 56.1 (45.5-73.1) % Lymph % (Auto) 34.1 (18.3-44.2) % [place] % (Auto) 7.1 (2.6-8.5) % Eos % (Auto) 0.9 (0-4.4) % Baso % (Auto) 0.6 (0.2-1.2) % Lymph # (Auto) 2.63 (0.9-3.2) K/mm3 [place] # (Auto) 0.6 (0.1-0.6) K/mm3 Eos # (Auto) 0.1 (0-0.3) K/mm3 Baso # (Auto) 0.1 (0.0-0.1) K/mm3 Abs Immat Gran (auto) 0.09 H (0.00-0.031) K/mm3 Absolute Neuts (auto) 4.3 (1.3-6.7) K/mm3 Absolute Nucleated RBC 0.000 (0.0-0.012) K/mm3 Nucleated RBC % 0.0 (0.0-0.2) % PT 13.8 (11.1-14.7) Seconds INR 1.0 APTT 30.5 (22.3-36.8) Seconds Sodium 142 (137-145) mmol/L Potassium 4.0 (3.4-5.0) mmol/L Chloride 103 (98-107) mmol/L Carbon Dioxide 28 (22-30) mmol/L Anion Gap 11 (4-12) mmol/L BUN 16 D (9-20) mg/dL Creatinine 0.81 (0.7-1.3) mg/dL Estim Creat Clear Calc 128 ml/min Estimated GFR > 60 (59 - ) Glucose 114 H (65-110) mg/dL Calcium 10.0 (8.4-10.2) mg/dL Magnesium 1.9 (1.6-2.3) mg/dL Total Bilirubin 0.8 (0.2-1.3) mg/dL AST 34 (17-59) U/L ALT 40 (6-50) U/L Alkaline Phosphatase 91 (38-126) U/L Troponin I < 0.012 (0.000-0.034) ng/mL Total Protein 8.0 (6.3-8.2) g/dL Albumin 4.6 (3.5-5.1) g/dL Lipase 59 (23-300) U/L Discharge Plan Discharge Clinical Impression: Bradycardia Patient Disposition: Home, Self-Care Condition: Improved Instructions: Antibiotic Form, Bradycardia (ED) Additional Instructions: Please follow-up with your primary care physician as scheduled for your upcoming appointment in 2 days. You also informed that you will be provided with a referral for 1 of our primary care physician and a scenic artist if you would like to follow-up with either of them. Return to the emergency department if any new or worsening symptoms develop. You are on the lowest dose of the propranolol extended release 60 mg therefore you were prescribed 20 mg of extended-release propranolol to take every 12 hours totaling 40 mg per day to take until you follow-up with your primary care physician as your symptoms are likely due to the beta-brittani you currently on. Patient Language: Tristanian Prescriptions: New propranolol 20 mg tablet 20 mg PO Q12H Qty: 14 0RF No Action atorvastatin 10 mg tablet 10 mg DIRECTED hydrochlorothiazide 25 mg tablet 12.5 mg PO DIRECTED metoprolol succinate 25 mg tablet extended release 24 hr 25 mg PO DAILY clonidine HCl 0.2 mg tablet 0.2 mg PO DIRECTED venlafaxine 150 mg capsule,extended release 24hr 150 mg PO DAILY buspirone 7.5 mg tablet 7.5 mg PO BID 30 Days Qty: 60 0RF prazosin 1 mg capsule propranolol 60 mg capsule,extended release 24 hr PO metronidazole 500 mg tablet hydroxyzine HCl 50 mg tablet ciprofloxacin HCl 500 mg tablet gabapentin 100 mg capsule aripiprazole 5 mg tablet guanfacine 2 mg tablet extended release 24 hr PO alprazolam 0.5 mg tablet 0.5 mg PO TID PRN (Reason: anxiety) Qty: 20 0RF Follow-up/Referrals: Blake Chau MD [Physician] - 3 Days PHYSICIAN NOT ON STAFF,NONSTAFF [Primary Care Provider] - Prashant Barksdale MD [Physician] - 3 Days Time of Disposition: 00:45
[2024-10-21 00:51] VITALS: BP 152/98; PULSE 48; RESP 15; O2SAT 99
[2024-10-21 00:59] LABS: Influenza A QL RT-PCR Negative (Negative); Influenza B QL RT-PCR Negative (Negative); RSV RNA, RT-PCR Negative (Negative); SARS-CoV-2 RNA PCR Negative (Negative)
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
== END 2024-10-21 00:52 | disposition home or self-care (01) ==
PROVIDERS: Emergency Provider Emergency Medicine
DX: R00.1 Bradycardia, unspecified (principal); I10 Essential (primary) hypertension; F41.9 Anxiety disorder, unspecified; Z87.820 Personal history of traumatic brain injury; Z79.899 Other long term (current) drug therapy
CPT/HCPCS: 36415; 71045; 80053; 83690; 83735; 84484; 85025; 85610; 85730; 87637; 93005; 99284

== ENCOUNTER 2025-05-15 13:07 | Emergency (ER) | payer OTHER, SELFPAY ==
[2025-05-15 13:15] VITALS: BP 160/106; PULSE 76; RESP 18; TEMP 36.7; O2SAT 97
--- NOTE | 2025-05-15 13:15 | ED.GENADULT ---
HPI - General Adult General Chief complaint: Skin/Abscess/Foreign Body Stated complaint: Insect Bite Time Seen by Provider: 05/15/25 13:15 Source: patient Mode of arrival: ambulatory Limitations: no limitations History of Present Illness HPI narrative: 44-year-old male patient presents to [facility] with complaints of a wound to the right middle finger for the past 3 days. Patient states he normally wears a white band ring to this finger and states he noticed was starting to swell and get source we took the ring off and states that the redness has gotten worse over the past couple of days and states it has come to ahead and actually has had some pus coming from a wound to the dorsal side of the right middle finger. Denies fevers body aches or chills. Related Data Home Medications ?Medication ?Instructions ?Recorded ?Confirmed ?Last Taken ?Type atorvastatin 10 mg tablet 10 mg DIRECTED 08/03/22 02/21/24 Unknown History hydrochlorothiazide 25 mg tablet 12.5 mg PO DIRECTED 08/03/22 02/21/24 Unknown History clonidine HCl 0.2 mg tablet 0.2 mg PO DIRECTED 02/21/24 02/21/24 Unknown History metoprolol succinate 25 mg 25 mg PO DAILY 02/21/24 02/21/24 Unknown History tablet,extended release 24 hr venlafaxine 150 mg 150 mg PO DAILY 02/21/24 02/21/24 Unknown History capsule,extended release 24 hr aripiprazole 5 mg tablet mg 08/24/24 Unknown History gabapentin 100 mg capsule mg 08/24/24 Unknown History guanfacine 2 mg tablet,extended mg PO 08/24/24 Unknown History release 24 hr hydroxyzine HCl 50 mg tablet mg 08/24/24 Unknown History prazosin 1 mg capsule mg 08/24/24 Unknown History propranolol 60 mg capsule,24 mg PO 08/24/24 Unknown History hr,extended release Allergies Allergy/AdvReac Type Severity Reaction Status Date / Time prednisone Allergy Intermediate Hallucinati Verified 05/15/25 13:18 ng Sulfa (Sulfonamide Allergy Mild Swelling Verified 05/15/25 13:18 Antibiotics) Review of Systems Review of Systems: CONSTITUTIONAL: Denies fever, chills, or sweats. EYES: Denies visual changes, redness, or discharge. ENT: Denies rhinorrhea, congestion, sore throat, or otalgia. CARDIOVASCULAR: Denies chest pain, palpitations, or edema. RESPIRATORY: Denies cough or dyspnea. GASTROINTESTINAL: Denies abdominal pain, nausea, vomiting, or diarrhea. GENITOURINARY: Denies dysuria or hematuria. SKIN: Denies rash or itching. Positive wound to right middle finger x3 days MUSCULOSKELETAL: Denies back pain, joint pain, or myalgia. NEUROLOGIC: Denies headache, numbness, or weakness. PSYCHIATRIC: Denies anxiety or depression. [facility] Past Medical History Medical History TBI (traumatic brain injury) Hypertension Surgical History Surgical History History of surgical removal of pilonidal cyst 07/2024 Comments At the time of my signature I agree with nursing past medical history, surgical, social, and family history. There is no relevant family history pertinent to the presenting complaint. Exam Narrative: GENERAL: Well-appearing, well-nourished, and in no acute distress. HEAD: Normocephalic, atraumatic. EYES: PERRLA and EOMI. ENT: Nares clear, no rhinorrhea or epistaxis. Mucous membranes moist. NECK: Supple. No lymphadenopathy CHEST: Clear to auscultation. No respiratory distress. HEART: Regular rate and rhythm. No murmur heard. Normal peripheral pulses. ABDOMEN: Soft, nontender, nondistended, normal active bowel sounds. EXTREMITIES: Normal range of motion. No edema. SKIN: Warm, dry, no rash. Patient has a wound noted to the right middle finger between the PIP and MIP joint. There is a hint to the wound with active 0 yellow drainage noted. There is warmth and surrounding erythema. Dull wound is measuring approximately 1 cm in diameter surrounding erythema does go up towards the hand measuring approximately 5 cm in length. NEURO: No focal deficits. Alert and oriented x3. Course Course Level of Care: Express Care Visit Vital Signs Vital signs: Vital Signs Temperature 36.7 C 05/15/25 13:15 Pulse Rate 76 05/15/25 13:15 Respiratory Rate 18 05/15/25 13:15 Blood Pressure 160/106 H 05/15/25 13:15 Pulse Oximetry 97 05/15/25 13:15 Oxygen Delivery Room Air 05/15/25 13:15 Temperature 36.7 C 05/15/25 13:15 Pulse Rate 76 05/15/25 13:15 Respiratory Rate 18 05/15/25 13:15 Blood Pressure 160/106 H 05/15/25 13:15 Pulse Oximetry 97 05/15/25 13:15 Oxygen Delivery Room Air 05/15/25 13:15 Vital signs reviewed. The patient has been informed that they may have pre-hypertension or Hypertension based on a BP reading in the department. I recommend that the patient call the primary care provider listed on their discharge instructions or a physician of their choice this week to arrange follow up for further evaluation of possible pre-hypertension or Hypertension Medical Decision Making MDM Narrative Medical decision making narrative: A swab the discharge was obtained will send off lab for culture. Area was cleansed and antibiotic ointment and Band-Aid was placed on the wound. Discussed with patient we will discharge him home with oral antibiotic and topical antibiotic. Patient encouraged to keep the wound clean and apply the antibiotic ointment. Discussed with patient that if the redness continues to move up towards the hand and arm that he would need be seen by his primary doctor or go to the ER for further evaluation or treatment. If patient develops fevers body aches or chills he will need to go the ER. Patient verbalized understanding denies any other questions or concerns at this time. Differential Diagnosis Differential Diagnosis: Differential diagnosis: Abscess, cellulitis, hidradenitis, laceration, puncture wound. Vital Signs Vital Signs: Vital Signs Temperature 36.7 C 05/15/25 13:15 Pulse Rate 76 05/15/25 13:15 Respiratory Rate 18 05/15/25 13:15 Blood Pressure 160/106 H 05/15/25 13:15 Pulse Oximetry 97 05/15/25 13:15 Oxygen Delivery Room Air 05/15/25 13:15 Temperature 36.7 C 05/15/25 13:15 Pulse Rate 76 05/15/25 13:15 Respiratory Rate 18 05/15/25 13:15 Blood Pressure 160/106 H 05/15/25 13:15 Pulse Oximetry 97 05/15/25 13:15 Oxygen Delivery Room Air 05/15/25 13:15 Critical Care Time Critical Care Time Critical Care Time: No Discharge Plan Discharge Clinical Impression: Cellulitis of right middle finger Patient Disposition: Home Condition: Stable Instructions: Antibiotic Form, Cellulitis (ED) Additional Instructions: Take the prescribed antibiotic medicine you are given as directed until it is gone. Take it even if you feel better. It treats the infection and stops it from returning. Not taking all the medicine can make future infections hard to treat. Keep the infected area clean. When possible, raise the infected area above the level of your heart. This helps keep swelling down. May take Tylenol ibuprofen as needed for pain Take your temperature once a day for a week to monitor for fevers. If you do spike a fever please call your doctor right away. Wash your hands often to prevent spreading the infection. In the future, wash your hands before and after you touch cuts, scratches, or bandages. This will help prevent infection. Please call your doctor today and be scheduled for follow-up appointments in regards to being evaluated for vascular disease. When to call your healthcare provider Call your healthcare provider immediately if you have any of the following: Difficulty or pain when moving the joints above or below the infected area Discharge or pus draining from the area Fever of 100.4?F (38?C) or higher, or as directed by your healthcare provider Pain that gets worse in or around the infected Redness that gets worse in or around the infected area, particularly if the area of redness expands to a wider area Shaking chills Swelling of the infected area Vomiting Patient Language: Sammarinese Prescriptions: New doxycycline hyclate 100 mg tablet 100 mg PO BID 7 Days Qty: 14 0RF mupirocin [Centany] 2 % ointment 1 applic topical BID Qty: 22 0RF No Action atorvastatin 10 mg tablet 10 mg DIRECTED hydrochlorothiazide 25 mg tablet 12.5 mg PO DIRECTED metoprolol succinate 25 mg tablet extended release 24 hr 25 mg PO DAILY clonidine HCl 0.2 mg tablet 0.2 mg PO DIRECTED venlafaxine 150 mg capsule,extended release 24hr 150 mg PO DAILY buspirone 7.5 mg tablet 7.5 mg PO BID 30 Days Qty: 60 0RF prazosin 1 mg capsule propranolol 60 mg capsule,extended release 24 hr PO hydroxyzine HCl 50 mg tablet gabapentin 100 mg capsule aripiprazole 5 mg tablet guanfacine 2 mg tablet extended release 24 hr PO propranolol 20 mg tablet 20 mg PO Q12H Qty: 14 0RF alprazolam 0.5 mg tablet 0.5 mg PO TID PRN (Reason: anxiety) Qty: 20 0RF Follow-up/Referrals: Mehdi,Nitin Ruiz MD [Primary Care Provider] - Time of Disposition: 13:44
== END 2025-05-15 13:50 | disposition home or self-care (01) ==
PROVIDERS: Emergency Provider Nurse Practitioner Family; PCP Family Medicine
DX: L03.011 Cellulitis of right finger (principal); I10 Essential (primary) hypertension; Z87.820 Personal history of traumatic brain injury
CPT/HCPCS: 87070; 87075; 99213; G0463

== ENCOUNTER 2025-08-14 02:04 | Emergency (ER) | payer OTHER, SELFPAY ==
[2025-08-14 02:04] VITALS: BP 150/103; PULSE 89; RESP 18; TEMP 36.8; O2SAT 95
--- NOTE | 2025-08-14 02:28 | ED_ITS ---
HPI - General Adult General Chief complaint: Unspecified Stated complaint: hearing voices wanting to hurt him Time Seen by Provider: 08/14/25 02:11 History of Present Illness HPI narrative: This is a 44-year-old male presenting with paranoia. Patient says that his mother this week and an attempt to not feel anything he has been doing meth for several days. He says it been going okay until he developed paranoia. He says that there are people waiting outside his apartment kill them. He can hear them talking in their car in the parking lot. He denies thoughts of harming himself or others. He has a psychiatrist that he sees on an outpatient basis. When asked with the goal of his visit is today he wanted something to ease his anxiety and a safe place to stay for the night. Related Data Home Medications ?Medication ?Instructions ?Recorded ?Confirmed ?Last Taken ?Type atorvastatin 10 mg tablet 10 mg DIRECTED 08/03/22 0 02/21/24 Unknown History hydrochlorothiazide 25 mg tablet 12.5 mg PO DIRECTE D 08/03/22 02/21/24 Unknown History clonidine HCl 0.2 mg tablet 0.2 mg PO DIRECTED 01/2902/21/24 Unknown History metoprolol succinate 25 mg 25 mg PO DAILY 02/21/24 Unknown History tablet,extended release 24 hr venlafaxine 150 mg 150 mg PO DAILY 02/21/24 Unknown History capsule,extended release 24 hr aripiprazole 5 mg tablet mg 08/24/24 Unknown History gabapentin 100 mg capsule mg 08/24/24 Unknown History guanfacine 2 mg tablet,extended mg PO 08/24/24 Unknow n History release 24 hr hydroxyzine HCl 50 mg tablet mg 08/24/24 Unknown Hist ory prazosin 1 mg capsule mg 08/24/24 Unknown History propranolol 60 mg capsule,24 mg PO 08/24/24 Unknown H istory hr,extended release Allergies Allergy/AdvReac Type Severity Reaction Status Date / Time prednisone Allergy Intermediate Hallucinati Verified 05/15/25 13:18 ng Sulfa (Sulfonamide Allergy Mild Swelling Verified 05/15/25 13:18 Antibiotics) [facility] Past Medical History Medical History TBI (traumatic brain injury) Hypertension Surgical History Surgical History History of surgical removal of pilonidal cyst 07/2024 Exam 2 Narrative: APPEARANCE: anxious appearing, disheveled Head: atraumatic. EYES: EOMI, NOSE: Atraumatic NECK: Trachea midline RESPIRATORY: No increased rate of breathing CTAB CARDIOVASCULAR: RRR, ABDOMINAL: Non-distended soft nontender MUSCULOSKELETAl: No obvious deformities NEURO: Alert. Moving 4/4 extremities SKIN:: Warm, dry. Normal color PSYCHIATRIC: anxious. Course Vital Signs Vital signs: Vital Signs Temperature 98.2 F 08/14/25 02:04 Pulse Rate 89 08/14/25 02:04 Respiratory Rate 18 08/14/25 02:04 Blood Pressure 150/103 H 08/14/25 02:04 Pulse Oximetry 95 08/14/25 02:04 Oxygen Delivery Room Air 08/14/25 02:04 Temperature 98.2 F 08/14/25 02:04 Pulse Rate 89 08/14/25 02:04 Respiratory Rate 18 08/14/25 02:04 Blood Pressure 150/103 H 08/14/25 02:04 Pulse Oximetry 95 08/14/25 02:04 Oxygen Delivery Room Air 08/14/25 02:04 Medical Decision Making MDM Narrative Medical decision making narrative: -Course: 44-year-old male presenting with meth induced paranoia. I ordered Valium for the patient for anxiolysis, however he fell asleep before the medication was administered. No SI or HI. He is not overtly psychotic. he does not appear to be imminent harm to self or anyone else. He was monitored in the morning and then discharge. Instructed to follow-up with his psychiatrist and refrain for meth use. -DDX includes but is not limited to: Amphetamine abuse, polysubstance use disorder, anxiety, depression -Co-morbidities complicating care: polysubstance use disorder Vital Signs Vital Signs: Vital Signs Temperature 98.2 F 08/14/25 02:04 Pulse Rate 89 08/14/25 02:04 Respiratory Rate 18 08/14/25 02:04 Blood Pressure 150/103 H 08/14/25 02:04 Pulse Oximetry 95 08/14/25 02:04 Oxygen Delivery Room Air 08/14/25 02:04 Temperature 98.2 F 08/14/25 02:04 Pulse Rate 89 08/14/25 02:04 Respiratory Rate 18 08/14/25 02:04 Blood Pressure 150/103 H 08/14/25 02:04 Pulse Oximetry 95 08/14/25 02:04 Oxygen Delivery Room Air 08/14/25 02:04 Lab Data 08/14/25 02:18 08/14/25 02:18 Labs: Lab Results 08/14/25 Range/Units 02:18 WBC Pending RBC Pending Hgb Pending Hct Pending MCV Pending MCH Pending MCHC Pending RDW Pending Plt Count Pending MPV Pending Immature Gran % (Auto) Pending Neut % (Auto) Pending Lymph % (Auto) Pending Nash % (Auto) Pending Eos % (Auto) Pending Baso % (Auto) Pending Lymph # (Auto) Pending Nash # (Auto) Pending Eos # (Auto) Pending Baso # (Auto) Pending Abs Immat Gran (auto) Pending Absolute Neuts (auto) Pending Absolute Nucleated RBC Pending Nucleated RBC % Pending Sodium Pending Potassium Pending Chloride Pending Carbon Dioxide Pending Anion Gap Pending BUN Pending Creatinine Pending Estim Creat Clear Calc Pending Estimated GFR Pending Glucose Pending Calcium Pending Total Bilirubin Pending AST Pending ALT Pending Alkaline Phosphatase Pending Total Protein Pending Albumin Pending TSH (Reflex) Pending Ethyl Alcohol Pending Discharge Plan Discharge Clinical Impression: Amphetamine abuse Patient Disposition: Home Condition: Stable Instructions: Antibiotic Form, Methamphetamine Use Disorder (ED) Additional Instructions: You were seen in the emergency department for anxiety related to your amphetamine abuse. Please refrain from meth use as it is causing you to be paranoid. Please follow-up your psychiatrist for further management. Patient Language: Dutch Prescriptions: No Action atorvastatin 10 mg tablet 10 mg DIRECTED hydrochlorothiazide 25 mg tablet 12.5 mg PO DIRECTED metoprolol succinate 25 mg tablet extended release 24 hr 25 mg PO DAILY clonidine HCl 0.2 mg tablet 0.2 mg PO DIRECTED venlafaxine 150 mg capsule,extended release 24hr 150 mg PO DAILY buspirone 7.5 mg tablet 7.5 mg PO BID 30 Days Qty: 60 0RF prazosin 1 mg capsule propranolol 60 mg capsule,extended release 24 hr PO hydroxyzine HCl 50 mg tablet gabapentin 100 mg capsule aripiprazole 5 mg tablet guanfacine 2 mg tablet extended release 24 hr PO doxycycline hyclate 100 mg tablet 100 mg PO BID 7 Days Qty: 14 0RF mupirocin [Centany] 2 % ointment 1 applic topical BID Qty: 22 0RF propranolol 20 mg tablet 20 mg PO Q12H Qty: 14 0RF alprazolam 0.5 mg tablet 0.5 mg PO TID PRN (Reason: anxiety) Qty: 20 0RF Follow-up/Referrals: Mehdi,Nitin Ruiz MD [Primary Care Provider, Unknown]
[2025-08-14 02:30] LABS: Hematocrit 49.1 % (42.0-52.0); Hemoglobin 16.7 g/dL (14.0-18.0); Immature Granulocyte Percent A 0.3 % (0-0.5); Lymphocytes Absolute Auto 1.67 K/mm3 (0.9-3.2); Mean Corpuscular HGB Conc 34.0 g/dl (32-36); Mean Corpuscular Hemoglobin 28.7 pg (26-34); Mean Corpuscular Volume 84.4 fl (80-100); Nucleated Red Blood Cells Absolute Auto 0.000 K/mm3 (0.0-0.012); Nucleated Red Blood Cells Perc 0.0 % (0.0-0.2); Platelet Count Result 315 k/mm3 (150-375); Red Blood Count 5.82 M/mm3 (4.6-6.20); White Blood Count 11.0 K/mm3 (4.5-10.0)
[2025-08-14 03:04] LABS: Thyroid Stimulating Hormone Reflex 0.519 uIU/mL (0.465-4.68)
[2025-08-14 03:09] LABS: Alanine Aminotransferase 37 U/L (6-50); Albumin Level 4.8 g/dL (3.5-5.1); Alkaline Phosphatase 85 U/L (38-126); Anion Gap 11 mmol/L (4-12); Aspartate Amino Transferase 39 U/L (17-59); Bilirubin,Total 1.5 mg/dL (0.2-1.3); Blood Urea Nitrogen 20 mg/dL (9-20); Calcium 9.7 mg/dL (8.4-10.2); Carbon Dioxide 27 mmol/L (22-30); Chloride 99 mmol/L (98-107); Estimated CRCL calculation 80 ml/min; Estimated Glomerular Filt Rate > 60; Glucose 129 mg/dL (65-110); Potassium 3.1 mmol/L (3.4-5.0); Sodium 137 mmol/L (137-145); Total Protein 8.1 g/dL (6.3-8.2)
[2025-08-14 04:15] VITALS: BP 134/77; PULSE 82; RESP 20; O2SAT 97
--- NOTE | 2025-08-14 05:55 | PC.NURSE ---
This rn attempted to call a ride for pt through his [employer]. Rn was unable to get in touch with someone due to them not being open till 0800 AM. improvement lead notified.
== END 2025-08-14 05:40 | disposition home or self-care (01) ==
LOC: ANHED 02:48
PROVIDERS: Emergency Provider Emergency Medicine; PCP Family Medicine
DX: F11.10 Opioid abuse, uncomplicated (principal); I10 Essential (primary) hypertension; Z87.820 Personal history of traumatic brain injury; Z79.899 Other long term (current) drug therapy
CPT/HCPCS: 36415; 80053; 82077; 84443; 85025; 99283